=== PATIENT | female | born 1945 | race Caucasian/White ===

== ENCOUNTER 2017-01-09 13:11 | Emergency (ER) | payer MEDICARE, OTHER ==
[~2017-01-09] VITALS: Ht 162.6 cm; Wt 61.2 kg
[2017-01-09] MEDS ORDERED: LEVOTHYROXINE0.05 MG PO (13:48)
[2017-01-09] MEDS ORDERED: EVISTA60 MG PO (13:48)
[2017-01-09] MEDS ORDERED: HYDROCHLOROTHIA PO (13:49)
[2017-01-09] MEDS ORDERED: OMEPRAZOLE20 MG PO (13:50)
[2017-01-09] MEDS ORDERED: LIPITOR40 MG PO (13:50)
[2017-01-09] MEDS ORDERED: TEMAZEPAM30 MG PO (13:50)
[2017-01-09] MEDS ORDERED: TRAZODONE 50MG50 MG PO (13:51)
[2017-01-09] MEDS ORDERED: FISH OIL1000 MG PO (13:51)
[2017-01-09] MEDS ORDERED: CALCIUM ACETAT667 MG PO (13:51)
--- NOTE | 2017-01-09 13:57 | Urgent Treatment Center Report ---
History of Present Issue Date/Time Seen by Provider 01/09/17 1356 Visit Reason Pt arrived:Walked Presenting Problem:PT STATES SHE WAS MOWING HER YARD YESTERDAY MORNING AT 1130 WHEN SHE TRIPPED ON THE SIDEWALK AND FELL. STATES PAIN TO RIGHT BREAST AREA. DENIES ANY OTHER SYMPTOMS. STATES PAIN WITH MOVEMENT BUT STATES SHE IS OK LONG SHE IS SITTING STILL Location if Accident:Home Onset of symptoms date/time:01/08/17 or onset unknown for: Have you (or family members/close friends) recently traveled outside the [place]? N If Yes, where/when: Have you had exposure to infectious disease within the past month? TB? Other? Specify: c/o pain in right anterior chest "behind my breast". Worried about a fractured rib. hx of fractured ribs "and feels just like one". Reports she was mowing yesterday around 1130am when she tripped on the sidewalk. Landed w/ right side "near my breast" hitting sidewalk edge. Immediate pain "but I got up and kep mowing for another hour or so". Minimal pain at rest but worse w/ mvmt involving right anterior chest "like bending over to the right or something". Also suffered minor abrasion on right knee and minimal scratch to right elbow. Denies pain elsewhere. Ibuprofen helps. "really takes the edge off". Denies SOA, difficulty breathing or increase in pain w/ breathing "unless i cough or breath really deep but at least I am not coughing". Source patient Exam Limitations no limitations ALLERGIES Coded Allergies: No Known Allergies (08/27/15) Home Medications Reported Medications Levothyroxine Sodium (Levothyroxine) 0.05 MG PO DAILY RALOXIFENE HCL (Evista) 60 MG PO DAILY TRIAMTERENE/HYDROCHLOROTHIAZID (Triamterene-Hctz 50-25 MG Cap) 1 CAP PO DAILY Atorvastatin Calcium (Atorvastatin) 10 MG PO NIGHTLY Omeprazole (Omeprazole 20MG) 20 MG PO PRN PRN GERD Temazepam (Temazepam 30MG) 30 MG PO QHS TRAZODONE HCL (Trazodone HCl) 50 MG PO QHS OMEGA-3 FATTY ACIDS/FISH OIL (Fish Oil 1,000 MG Capsule) 1,000 MG PO DAILY Calcium Acetate 1,000 MG PO DAILY History Medical History General CAD? No Angina: No MT: No Hypertension? Yes Hyperlipidemia? Yes CHF? No DVT? No PE? No COPD? No Asthma? No Anemia? No GERD? Yes Gastric ulcers? No GI Bleed? No Hernia? No Thyroid Problems? Yes Hypothyroidism? Yes CVA? No Seizures? No Diabetes? No Renal Insuffiency? No UTI? No Stones? No GB Disease: No Nephritic Syndrome? No Asplenia? No Hepatitis? No Sickle Cell Disease? No Arthritis? No Migraines? No Cataracts? Yes Glaucoma? No MRSA? No HIV? No TB? No Anxiety? No Depression? No Cancer? Yes Site: SKIN Immunization HX DT/Tetanus 1-4 Years Ago Surgical Hx Previous Surgery?Y BACK 2000 THYROID 2000 HYSTERECTOMY 1985 CATARACT 2009 Social History Smoking Hx Smoker: Never Smoker Tobacco: No Alcohol Alcohol: No Review of Systems All Other Systems Reviewed and Negative Constitutional denies fever, denies malaise Cardiovascular denies palpitations Gastrointestinal denies nausea, denies vomiting Musculoskeletal denies back pain, denies muscle pain, denies muscle stiffness Skin see HPI, denies change in color ("I expected a bruise") Physical Exam Vital Signs Vital Signs Date Time Temp Pulse Resp B/P Pulse O2 O2 Flow FiO2 Ox Delivery Rate 01/09 1515 98.1 77 20 108/71 95 01/09 1344 98.1 77 20 108/71 95 General Appearance normal appearance, no apparent distress Neck normal inspection, non-tender, supple, full range of motion Respiratory Status Yes: trachea midline, chest symmetrical, tender on palpation (rt anterior behind breast), pain on inspiration (really deep). No: respiratory distress (no cough) , use of accessory muscles, pain on expiration. Lung Sounds anterior: lungs clear. posterior: lungs clear. bilateral: lungs clear. Cardiovascular regular rate/rhythm, no peripheral edema, no murmur Extremities normal range of motion Strength 5 Upper Ext (L), 5 Upper Ext (R) Neurologic alert Skin normal color, warm/dry, abrasions (very mild, superficial, rt kne) Medical Decision Making LABS/Meds/Orders Pt receiving controlled substance in ED? No XRAY/CT/US XRAY/CT/US XRAY rib XR interpretation by reviewed by me, discussed w/radiologist (via phone and read report) Xray Results rt 6th rib nondisplaced fracture Departure Departure Time of Disposition 1505 Disposition DC Home or Self Care(routine) Clinical Impression Primary Impression: Right rib fracture Qualifiers: Encounter type: initial encounter Rib fracture type: single rib Fracture type: closed Qualified Code: S22.31XA - Fracture of one rib, right side , initial encounter for closed fracture Secondary Impressions: Fall from other slipping, tripping, or stumbling Condition STABLE Referrals Hossein GALLEGOS,Alan (Family) Follow up IMMEDIATELY for new or worsening symptoms OR no noticeable improvement. 911 for difficulty breathing. Patient Instructions DI for Rib Fracture Additional Instructions * Rest * can try ice or heat 3-4 times a day if necessary * NO Winston wrap. Do NOT wrap or try to brace your ribs. Holding a pillow over ribs with moving or coughing is ok. * ibuprofen and tylenol as needed for pain as long as your primary care has told you it is ok to take them. Pt reporting she has percocet at home and will take them "if I absolutely have to". Enc to follow up as discussed. Follow up IMMEDIATELY for new or worsening symptoms OR no noticeable improvement. Discharge Counseling Counseled pt/family regarding diagnosis, test results, medications/RX, home care, follow up needs at 1927
--- NOTE | 2017-01-09 14:34 | RADIOLOGY REPORT PS360 ---
[id number] VIEWS HISTORY: Thoracic wall pain following injury FALL/BREAST PAIN ORDERING PHYSICIAN: ANETA FLETCHER APRN PATIENT AGE: 71 years COMPARISON: None FINDINGS: A frontal view of the chest shows no acute finding. Multiple views of the right ribs were obtained. Nondisplaced fracture involves the anterior aspect of the right sixth rib. There is no evidence of pneumothorax. Minimal atelectatic or fibrotic changes are present in the lung bases. IMPRESSION: Nondisplaced right sixth rib fracture
[2017-01-09 15:15] VITALS: BP 108/71
== END 2017-01-09 15:15 | disposition home or self-care (01) ==
LOC: UTC 13:11
DX: S22.31XA Fracture of one rib, right side, initial encounter for closed fracture (principal); I10 Essential (primary) hypertension; K21.9 Gastro-esophageal reflux disease without esophagitis; W01.0XXA Fall on same level from slipping, tripping and stumbling without subsequent striking against object, initial encounter; Y92.009 Unspecified place in unspecified non-institutional (private) residence as the place of occurrence of the external cause

== ENCOUNTER → 2017-02-05 | Outpatient (CLI) | payer MEDICARE, OTHER ==
[~2017-02-05] MED LIST: CALCIUM ACETAT667 MG PO; EVISTA60 MG PO; FISH OIL1000 MG PO; HYDROCHLOROTHIA PO; LEVOTHYROXINE0.05 MG PO; LIPITOR40 MG PO; OMEPRAZOLE20 MG PO; TEMAZEPAM30 MG PO; TRAZODONE 50MG50 MG PO
--- NOTE | 2017-02-05 14:33 | RADIOLOGY REPORT PS360 ---
BONE DENSITOMETRY(HIP:LT SPINE HISTORY: OSTEOPENIA ORDERING PHYSICIAN: Corona Allan MD PATIENT AGE: 71 years COMPARISON: None FINDINGS: The BMD measured at the left femoral neck is 0.45 g/cm squared with a T score of -1.4. This is considered Osteopenic according to the World Health Organization criteria. Fracture risk is Moderate. Treatment is advised. IMPRESSION: Osteopenia left femoral neck. The mean bone density of the hips has increased by 0.8% compared to 10/01/2015 Recommend follow-up exam January 2019
== END ==
LOC: RAD 12:26
DX: N95.1 Menopausal and female climacteric states (principal); M89.9 Disorder of bone, unspecified; Z13.820 Encounter for screening for osteoporosis

== ENCOUNTER 2017-06-07 15:20 | Emergency (ER) | payer MEDICARE, OTHER ==
[~2017-06-07] VITALS: Ht 162.6 cm; Wt 60.8 kg
--- NOTE | 2017-06-07 15:40 | Emergency Room Report ---
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 N Clinical Suspician of Infection? N Mental Status: 1 - Regular (Normal Baseline) Sepsis Risk:Low Sepsis Risk Have you (or family members/close friends) recently traveled outside the [place]? N If Yes, where/when: Have you had exposure to infectious disease within the past month? N TB? Other? Specify: 9 years old white female who was weed eating when she tripped and fell landed on the right shoulder, it hurts when she move it. No gross deformity. He denies head injury or neck pain. There is no loss of consciousness. She drank few beers last night. I added a C-spine x-ray. Source patient, RN notes reviewed Exam Limitations no limitations ALLERGIES Coded Allergies: No Known Allergies (08/27/15) Home Medications Reported Medications Levothyroxine Sodium (Levothyroxine) 0.05 MG PO DAILY RALOXIFENE HCL (Evista) 60 MG PO DAILY TRIAMTERENE/HYDROCHLOROTHIAZID (Triamterene-Hctz 50-25 MG Cap) 1 CAP PO DAILY Atorvastatin Calcium (Atorvastatin) 10 MG PO NIGHTLY Omeprazole (Omeprazole 20MG) 20 MG PO PRN PRN GERD Temazepam (Temazepam 30MG) 30 MG PO QHS TRAZODONE HCL (Trazodone HCl) 50 MG PO QHS OMEGA-3 FATTY ACIDS/FISH OIL (Fish Oil 1,000 MG Capsule) 1,000 MG PO DAILY Calcium Acetate 1,000 MG PO DAILY History Medical History General CAD? No Angina: No MT: No Hypertension? Yes Hyperlipidemia? Yes CHF? No DVT? No PE? No COPD? No Asthma? No Anemia? No GERD? Yes Gastric ulcers? No GI Bleed? No Hernia? No Thyroid Problems? Yes Hypothyroidism? Yes CVA? No Seizures? No Diabetes? No Renal Insuffiency? No End Stage Renal Disease? No UTI? No Stones? No GB Disease: No Nephritic Syndrome? No Asplenia? No Hepatitis? No Sickle Cell Disease? No Arthritis? No Migraines? No Cataracts? Yes Glaucoma? No MRSA? No HIV? No TB? No Anxiety? No Depression? No Cancer? Yes Site: SKIN Immunization Hx DT/Tetanus 1-4 Years Ago Surgical Hx Previous Surgery?Y BACK 2000 THYROID 2000 HYSTERECTOMY 1985 CATARACT 2009 Social History Smoking Hx Smoker: Never Smoker Tobacco: No Type Cigarettes Alcohol Alcohol: No Review of Systems All Other Systems Reviewed and Negative Constitutional no symptoms reported Eyes no symptoms reported ENT no symptoms reported. Respiratory no symptoms reported Cardiovascular no symptoms reported Gastrointestinal no symptoms reported Genitourinary no symptoms reported. Musculoskeletal see HPI, joint pain (RIGHT shoulder) Skin no symptoms reported Psychiatric/Neurological no symptoms reported Physical Exam Vital Signs Vital Signs Date Time Temp Pulse Resp B/P Pulse O2 O2 Flow FiO2 Ox Delivery Rate 06/07 1527 98.0 74 18 134/83 99 The patient appears not intoxicated, behaving appropriately (Joslyn GALLEGOS,[facility]) - WBC >12,000 or <4,000 or 10% bands? 2 or more SIRS Criteria Met? B/P:134/83 MAP:100 Creatinine >2.0? UA output<0.5ml/kg/hr for 2 hrs? Platelet count >100,000? Lactate >2.0mmol/1? INR >1.2 or PTT > than 60 sec? Evidence of Organ Dysfunction? Provider documented clinical suspician of infection? N Sepsis Criteria Count: 0 Sepsis Risk: Low Sepsis Risk General Appearance normal appearance, WD/WN Eye Exam - bilateral eye normal exam, bilateral eye PERRL, bilateral eye EOMI Ear, Nose, Throat hearing grossly normal, normal ENT inspection Neck normal inspection, non-tender, supple, full range of motion, no midline spine tenderness, no paraspinal tenderness Respiratory Status Yes: trachea midline, chest symmetrical, non tender chest. No: respiratory distress. Lung Sounds bilateral: normal breath sounds, lungs clear. 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 No Results/Orders Orders Procedure Date/time Status [id number]-3 VIEWS 06/07 153 Active CERVICAL SPINE 4 OR 5 VIEWS 06/07 153 Active CLAVICLE-RT 06/07 1530 Active XRAY/CT/US XRAY/CT/US XRAY C-spine, clavicle XR interpretation by reviewed by me Xray Results no fracture seen Comment djd without a fracture or subnluxation. Departure Departure Time of Disposition 1537 Disposition DC Home or Self Care(routine) Clinical Impression Primary Impression: Shoulder contusion Secondary Impressions: Alcohol use, DJD (degenerative joint disease) of cervical spine, Fracture of humeral head, right, closed Condition STABLE Referrals Damian Sherman MD Additional Instructions 1- rest. 2- ice 3-a rm sling 4- tlenol prn. 5- follow up with Dr. Castillo. 6- follow up with Dr. king on final x ray report. THE PATIENT AND HER BECAME RESTLESS WHILE WAITING ON DR CHENG FOR FINAL X RAY REPORT, HE HAS AN APPOINTMENT WITH DR KING IN AM AND THEY WILL ASK HIM FOR THE FINAL REPORT. THEY WILL DECIDE THEN IF CT SCAN IS NEEDED, SLAO SHE WAS GIVEN DR CASTILLO THE ORTHOPEDIC CONTACT NUMBER. DR. CRANE Discharge Counseling Counseled pt/family regarding diagnosis, test results, medications/RX, home care, follow up needs ED Critical Care Critical Care No If Critical Care minutes are documented, the time involved in the performance of seperately reportable procedures was not counted toward critical care time documented. I directly delivered medical care to this critically ill and/or injured patient. Timely evaluation and treatment was necessary to address the significant organ system(s) dysfunction present in this patient. Comments 1- arm sling. 2- ice and elevation. 3- use OTC pain medications as needed, the patien has old lortab rx. 4- NV check hourly while awake. 5- follow up with Dr. Castillo. 6- follow up with Dr. King in am for a final x ray report. at 1650
--- NOTE | 2017-06-07 15:40 | Emergency Room Report ---
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 N Clinical Suspician of Infection? N Mental Status: 1 - Regular (Normal Baseline) Sepsis Risk:Low Sepsis Risk Have you (or family members/close friends) recently traveled outside the [place]? N If Yes, where/when: Have you had exposure to infectious disease within the past month? N TB? Other? Specify: 9 years old white female who was weed eating when she tripped and fell landed on the right shoulder, it hurts when she move it. No gross deformity. He denies head injury or neck pain. There is no loss of consciousness. She drank few beers last night. I added a C-spine x-ray. Source patient, RN notes reviewed Exam Limitations no limitations ALLERGIES Coded Allergies: No Known Allergies (08/27/15) Home Medications Reported Medications Levothyroxine Sodium (Levothyroxine) 0.05 MG PO DAILY RALOXIFENE HCL (Evista) 60 MG PO DAILY TRIAMTERENE/HYDROCHLOROTHIAZID (Triamterene-Hctz 50-25 MG Cap) 1 CAP PO DAILY Atorvastatin Calcium (Atorvastatin) 10 MG PO NIGHTLY Omeprazole (Omeprazole 20MG) 20 MG PO PRN PRN GERD Temazepam (Temazepam 30MG) 30 MG PO QHS TRAZODONE HCL (Trazodone HCl) 50 MG PO QHS OMEGA-3 FATTY ACIDS/FISH OIL (Fish Oil 1,000 MG Capsule) 1,000 MG PO DAILY Calcium Acetate 1,000 MG PO DAILY History Medical History General CAD? No Angina: No ND: No Hypertension? Yes Hyperlipidemia? Yes CHF? No DVT? No PE? No COPD? No Asthma? No Anemia? No GERD? Yes Gastric ulcers? No GI Bleed? No Hernia? No Thyroid Problems? Yes Hypothyroidism? Yes CVA? No Seizures? No Diabetes? No Renal Insuffiency? No End Stage Renal Disease? No UTI? No Stones? No GB Disease: No Nephritic Syndrome? No Asplenia? No Hepatitis? No Sickle Cell Disease? No Arthritis? No Migraines? No Cataracts? Yes Glaucoma? No MRSA? No HIV? No TB? No Anxiety? No Depression? No Cancer? Yes Site: SKIN Immunization Hx DT/Tetanus 1-4 Years Ago Surgical Hx Previous Surgery?Y BACK 2000 THYROID 2000 HYSTERECTOMY 1985 CATARACT 2009 Social History Smoking Hx Smoker: Never Smoker Tobacco: No Type Cigarettes Alcohol Alcohol: No Review of Systems All Other Systems Reviewed and Negative Constitutional no symptoms reported Eyes no symptoms reported ENT no symptoms reported. Respiratory no symptoms reported Cardiovascular no symptoms reported Gastrointestinal no symptoms reported Genitourinary no symptoms reported. Musculoskeletal see HPI, joint pain (RIGHT shoulder) Skin no symptoms reported Psychiatric/Neurological no symptoms reported Physical Exam Vital Signs Vital Signs Date Time Temp Pulse Resp B/P Pulse O2 O2 Flow FiO2 Ox Delivery Rate 06/07 1527 98.0 74 18 134/83 99 The patient appears not intoxicated, behaving appropriately (Joslyn GALLEGOS,[facility]) - WBC >12,000 or <4,000 or 10% bands? 2 or more SIRS Criteria Met? B/P:134/83 MAP:100 Creatinine >2.0? UA output<0.5ml/kg/hr for 2 hrs? Platelet count >100,000? Lactate >2.0mmol/1? INR >1.2 or PTT > than 60 sec? Evidence of Organ Dysfunction? Provider documented clinical suspician of infection? N Sepsis Criteria Count: 0 Sepsis Risk: Low Sepsis Risk General Appearance normal appearance, WD/WN Eye Exam - bilateral eye normal exam, bilateral eye PERRL, bilateral eye EOMI Ear, Nose, Throat hearing grossly normal, normal ENT inspection Neck normal inspection, non-tender, supple, full range of motion, no midline spine tenderness, no paraspinal tenderness Respiratory Status Yes: trachea midline, chest symmetrical, non tender chest. No: respiratory distress. Lung Sounds bilateral: normal breath sounds, lungs clear. 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 No Results/Orders Orders Procedure Date/time Status [id number] VIEWS 06/07 153 Active CERVICAL SPINE 4 OR 5 VIEWS 06/07 153 Active CLAVICLE-RT 06/07 1530 Active XRAY/CT/US XRAY/CT/US XRAY C-spine, clavicle XR interpretation by reviewed by me Xray Results no fracture seen Comment djd without a fracture or subnluxation. Departure Departure Time of Disposition 1537 Disposition DC Home or Self Care(routine) Clinical Impression Primary Impression: Shoulder contusion Secondary Impressions: Alcohol use, DJD (degenerative joint disease) of cervical spine, Fracture of humeral head, right, closed Condition STABLE Referrals Damian Sherman MD Additional Instructions 1- rest. 2- ice 3-a rm sling 4- tlenol prn. 5- follow up with Dr. Castillo. 6- follow up with Dr. king on final x ray report. THE PATIENT AND HER BECAME RESTLESS WHILE WAITING ON DR CHENG FOR FINAL X RAY REPORT, HE HAS AN APPOINTMENT WITH DR KING IN AM AND THEY WILL ASK HIM FOR THE FINAL REPORT. THEY WILL DECIDE THEN IF CT SCAN IS NEEDED, SLAO SHE WAS GIVEN DR CASTILLO THE ORTHOPEDIC CONTACT NUMBER. DR. CRANE Discharge Counseling Counseled pt/family regarding diagnosis, test results, medications/RX, home care, follow up needs ED Critical Care Critical Care No If Critical Care minutes are documented, the time involved in the performance of seperately reportable procedures was not counted toward critical care time documented. I directly delivered medical care to this critically ill and/or injured patient. Timely evaluation and treatment was necessary to address the significant organ system(s) dysfunction present in this patient. Comments 1- arm sling. 2- ice and elevation. 3- use OTC pain medications as needed, the patien has old lortab rx. 4- NV check hourly while awake. 5- follow up with Dr. Castillo. 6- follow up with Dr. King in am for a final x ray report. at 1650
[2017-06-07 16:50] VITALS: BP 132/88
--- NOTE | 2017-06-08 06:26 | RADIOLOGY REPORT PS360 ---
CLAVICLE-RT HISTORY: Pain, contusion, sprain/strain fall ORDERING PHYSICIAN: Andrea Jorgensen MD PATIENT AGE: 72 years COMPARISON: None FINDINGS: No fracture or dislocation is evident. Osteoarthritic changes are present at the acromioclavicular joint with subcortical cystic change of the acromium. There is severe subacromial stenosis at osteoarthritic change of the right glenohumeral joint. IMPRESSION: 1. No acute fracture. 2. 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
--- NOTE | 2017-06-08 06:55 | RADIOLOGY REPORT PS360 ---
[id number] VIEWS HISTORY: Posttraumatic pain fall ORDERING PHYSICIAN: Andrea Jorgensen MD PATIENT AGE: 72 years COMPARISON: None FINDINGS: There is severe subacromial stenosis with osteoarthritic changes of the acromioclavicular joint and glenohumeral joint. There is an area of cortical irregularity involving the humeral head medially and inferiorly suggesting a nondisplaced fracture which may be confirmed with CT. No evidence of dislocation or other significant anomalies. IMPRESSION: Nondisplaced fracture of the humeral head
--- NOTE | 2017-06-08 06:57 | RADIOLOGY REPORT PS360 ---
EXAM: CERVICAL SPINE 4 OR 5 VIEWS HISTORY: Neck pain following injury fall ORDERING PHYSICIAN: Andrea Jorgensen MD PATIENT AGE: 72 years COMPARISON: None FINDINGS: There is normal alignment. Mild cervical curvature convex right. Multilevel degenerative disc disease with facet arthritic change from C2 to C7. No obvious fracture or dislocation. No lytic or blastic change. IMPRESSION: No acute fracture. Moderate to severe cervical spondylosis.
== END 2017-06-07 16:51 | disposition home or self-care (01) ==
LOC: ER 15:20
DX: S42.291A Other displaced fracture of upper end of right humerus, initial encounter for closed fracture (principal); W19.XXXA Unspecified fall, initial encounter; Y93.H2 Activity, gardening and landscaping; Y92.007 Garden or yard of unspecified non-institutional (private) residence as the place of occurrence of the external cause; Z72.89 Other problems related to lifestyle; M47.812 Spondylosis without myelopathy or radiculopathy, cervical region; Z79.899 Other long term (current) drug therapy; E89.0 Postprocedural hypothyroidism; I10 Essential (primary) hypertension; K21.9 Gastro-esophageal reflux disease without esophagitis

== ENCOUNTER → 2017-07-22 | Outpatient (CLI) | payer MEDICARE, OTHER ==
--- NOTE | 2017-07-25 12:25 | RADIOLOGY REPORT PS360 ---
DIG MAMM-SCREEN MAC W/CAD CAD Screening COMPARISON: Digital mammograms 06/25/2015 and 07/15/2016 INDICATION: There is no personal or family history of breast cancer. TECHNIQUE: Standard CC and MLO images were obtained. R2 CAD reviewed. FINDINGS: Scattered fiber glandular densities are seen throughout both breasts. Again noted is slightly increased glandular tissue in the subareolar region of the right breast but this stable and unchanged from previous exams. There is faint arterial calcification in each breast. There is no suspicious lesion and there are no suspicious microcalcifications. IMPRESSION: Stable exam with no suspicious lesion seen recommend yearly follow-up BI-RADS CATEGORY: 2_Benign RECOMMENDED FOLLOWUP: 12M 12 MONTH FOLLOW-UP (A letter has been sent to the patient regarding results of the study.)
== END ==
LOC: RAD 09:36
DX: Z12.31 Encounter for screening mammogram for malignant neoplasm of breast (principal); N95.1 Menopausal and female climacteric states
CPT/HCPCS: G0202